=== PATIENT | female | born 1950 | race Caucasian/White ===

== ENCOUNTER 2017-05-23 10:55 | Emergency (ER) | payer MEDICARE, OTHER ==
[~2017-05-23] VITALS: Ht 157.5 cm; Wt 72.7 kg
[2017-05-23 11:03] VITALS: BP 149/87
[2017-05-23] MEDS ORDERED: HYDROmorphone 2 MG/ML, 1ML ONE ×2 (11:29→11:46)
[2017-05-23] MEDS ORDERED: HYDROmorphone 1 MG/ML, 1ML IM ONE (11:30)
[2017-05-23] MEDS ORDERED: ONDANSETRON ODT 4 MG ONE (11:47)
[2017-05-23] MEDS ORDERED: ONDANSETRON ODT 4 MG PO ONE (12:00)
== END 2017-05-23 12:40 | disposition home or self-care (01) ==
LOC: ED 11:30
DX: S32.591A Other specified fracture of right pubis, initial encounter for closed fracture (principal); J44.9 Chronic obstructive pulmonary disease, unspecified; X58.XXXA Exposure to other specified factors, initial encounter; Y93.89 Activity, other specified; Y92.89 Other specified places as the place of occurrence of the external cause; Y99.8 Other external cause status
CPT/HCPCS: 96372; 99283; J1170; Q0162